=== PATIENT | male | born 2000 | race Caucasian/White ===

== ENCOUNTER 2023-01-20 03:22 | Inpatient (IN) | payer OTHER, BC, SELFPAY ==
[2023-01-20] VITALS (23 sets, daily range): BP systolic 113–127; BP diastolic 55–77; PULSE 63–140; RESP 18–20; TEMP 36.4–37.1; O2SAT 84–99; BMI 17.3
--- NOTE | 2023-01-20 03:38 | ED.GENADULT ---
HPI - General Adult General Chief complaint: Shortness of Breath/Dyspnea Stated complaint: shortness of breath Time Seen by Provider: 01/20/23 03:28 History of Present Illness HPI narrative: pt reports being short of breath. started yesterday, morning. No reported trauma . Chest pain, center of chest -5/10, worse with inhale. 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 Did measure a fever to 100.5. Does smoke. Really hurts with the deeper inhalation; he gestures to the mid low sternum. No trauma. Has been coughing but that has been since he started to have discomfort. No lower extremity symptoms. No exacerbating or relieving factors; does not change with position. Albuterol inhaler that would normally use had minimal effect. Says he has had intermittent wheeze. Mom notes history of RSV as a baby. Related Data Home Medications Medication Instructions Recorded Confirmed albuterol 90 mcg/actuation aerosol mcg inhalation 01/20/23 inhaler Allergies Allergy/AdvReac Type Severity Reaction Status Date / Time No Known Drug Allergies Allergy Verified 01/20/23 03:28 Review of Systems Status of ROS: Reports: 6 or more systems reviewed and unremarkable except as noted in History and below PFSH PFS Social History Non-prescribed substance use: denies use service: Yes (Guards) Exam Narrative: Exam Narrative: Slim. Quiet. Mildly labored in breathing. Lungs actually sound clear. Breath sounds throughout. Heart is tachycardic in a regular rhythm. Extremities are well perfused without edema. Trachea is midline. There is no supraclavicular crepitus. Abdomen is flat soft nontender. Oropharynx with trace erythema posteriorly. Neck without lymphadenopathy. Const: Vital Signs, click to edit/add: Vital Signs - 24 hr 01/20/23 03:27 01/20/23 03:27 01/20/23 03:28 Temperature 98.3 F Pulse Rate Pulse Rate [Left P ulse Oximeter] 140 H Respiratory Rate 18 20 Blood Pressure [Ri ght Upper Arm] 123/77 Pulse Oximetry 90 90 84 L Oxygen Delivery Me thod Nasal Cannula Room Air Oxygen Flow Rate 3 01/20/23 04:59 01/20/23 05:01 01/20/23 05:01 Temperature Pulse Rate Pulse Rate [Left P ulse Oximeter] 126 H Respiratory Rate 18 18 Blood Pressure [Ri ght Upper Arm] Pulse Oximetry 93 93 93 Oxygen Delivery Me thod Nasal Cannula Nasal Cannula Oxygen Flow Rate 3 01/20/23 07:34 01/20/23 07:45 01/20/23 08:01 Temperature Pulse Rate 108 H 107 H 107 H Pulse Rate [Left P ulse Oximeter] Respiratory Rate Blood Pressure [Ri ght Upper Arm] Pulse Oximetry 95 89 87 L Oxygen Delivery Me thod Room Air Room Air Room Air Oxygen Flow Rate Documenting provider has reviewed patient's vital signs: yes Course Vital Signs Vital signs: Initial Vital Signs Respiratory Rate 18 01/20/23 03:27 Pulse Oximetry 90 01/20/23 03:27 Oxygen Delivery Method Nasal Cannula 01/20/23 03:27 Oxygen Flow Rate 3 01/20/23 03:27 Vital Signs Respiratory Rate 18 01/20/23 03:27 Pulse Oximetry 90 01/20/23 03:27 Oxygen Delivery Method Nasal Cannula 01/20/23 03:27 Oxygen Flow Rate 3 01/20/23 03:27 Temperature 98.3 F 01/20/23 03:28 Pulse Rate 107 H 01/20/23 08:01 Respiratory Rate 18 01/20/23 05:01 Blood Pressure 123/77 01/20/23 03:28 Pulse Oximetry 87 L 01/20/23 08:01 Oxygen Delivery Method Room Air 01/20/23 08:01 Oxygen Flow Rate 3 01/20/23 05:01 Medications Administered Medications: Generic Name Dose Route Start Last Admin Trade Name Freq PRN Reason Stop Dose Admin Sodium Chloride 1,000 mls @ 1,000 mls/hr 01/20/23 08:40 01/20/23 09:23 0.9 % Sodium Chloride 1000 Ml IV 01/20/23 09:39 1,000 mls/hr .Q1H ONE Administration Discontinued Medications Generic Name Dose Route Start Last Admin Trade Name Freq PRN Reason Stop Dose Admin Albuterol 2.5 mg 01/20/23 07:03 01/20/23 07:05 Albuterol Sulfate 2.5 Mg/3 Ml Vial.Neb NEB 01/20/23 07:04 2.5 mg ONCE ONE Administration Albuterol/Ipratropium 1 neb 01/20/23 03:57 01/20/23 04:16 Iprat-Albut 0.5-2.5 Mg/3 Ml Neb IH 01/20/23 03:58 1 neb ONCE ONE Administration Methylprednisolone Sodium Succinate 80 mg 01/20/23 05:15 01/20/23 05:37 Methylprednisolone Sod Succ 40 Mg/Ml IVP 01/20/23 05:16 80 mg ONCE ONE Administration Medical Decision Making MDM Narrative Medical decision making narrative: Differential initially discussed includes pneumothorax/pneumomediastinum. Pneumonia. Pericarditis though positionally no change. Arrhythmia/SVT. COVID or influenza. Pulmonary embolus possible but unlikely. Will try a DuoNeb though absent wheeze. I still have concerns about pneumothorax. Oxygen saturations below 90 requiring some nasal cannula. Chest x-ray is unremarkable my read. I do not see a pneumothorax. No infiltrate. Radiology over-read without acute abnormality. Elevated white count at 12.5. COVID influenza negative. With history of asthma I have ordered Solu-Medrol. Reassessment still somewhat hypoxic to low mid 80s in sleep. Unclear etiology to that reported fever. Nonspecific viral etiology. Repeating an albuterol neb. On reassessment minimal change. Will go ahead and do IV contrasted CT scan of the chest/CT angio with PE protocol. EKG as below CT scan by my read shows mediastinal air. I do not see infiltrative process in the lungs. Final Report: INDICATION: Hypoxia; fever; low pleuritic chest pain. COMPARISON: Portable AP chest 01/20/2023 at 4:30 a.m. TECHNIQUE: CT chest with intravenous contrast; coronal and sagittal reformats. FINDINGS: No evidence of acute or chronic pulmonary thromboemboli. Extensive pneumo mediastinum. No pneumothorax or pleural effusion. No evidence of acute pulmonary infiltrates. No evidence of pleural effusion or chest wall pathology. Limited CT through the upper abdomen is unremarkable. Impression: 1. Extensive pneumomediastinum may be originating in the neck and extending down into the mediastinum; a perforation of the esophagus cannot be ruled out; suggest obtaining either a fluoroscopy with contrast or repeat CT of the neck and chest while the patient is swallowing oral contrast. 2. Findings were communicated to Dr. Bowling Recommendations are to admit for a swallow study though doubtful esophageal perforation, admitting for oxygen support/resolution. I have discussed this case with our surgeon and hospitalist and respiratory therapist. Understandable preference is to swallow study 1st to verify sanctity of the esophagus. Handing off at change of shift Lab Data Lab results reviewed: Yes I reviewed the patient's lab results Labs: Lab Results 01/20/23 01/20/23 Range/Units 03:45 04:15 WBC 12.49 H (4.50-11.00) K/uL RBC 5.22 (4.30-5.90) m/uL Hgb 16.0 (13.5-17.5) gm/dL Hct 46.0 (37.0-53.0) % MCV 88 (80-100) fL MCH 31 (26-34) pg MCHC 35 (32-36) gm/dL RDW Coeff of Alirio 13.0 (11.5-15.5) % Plt Count 364 (140-440) K/uL Neut % (Auto) 82.4 H (42.0-72.0) % Lymph % (Auto) 5.1 L (20-44) % Haakon % (Auto) 9.3 (0.0-11.0) % Eos % (Auto) 2.6 (0.0-7.0) % Baso % (Auto) 0.4 (0.0-3.0) % Neut # (Auto) 10.30 H (1.7-7.0) K/uL Lymph # (Auto) 0.60 L (0.90-2.90) K/uL [place]on # (Auto) 1.20 H (0.00-0.90) K/UL Eos # (Auto) 0.30 (0.00-0.50) K/uL Baso # (Auto) 0.00 (0.00-0.30) K/uL Abs Immat Gran (auto) 0.00 (0.00-0.30) K/uL Imm/Tot Granulo (auto) 0.2 % Sodium 141 (135-149) mmol/L Potassium 4.1 (3.6-5.1) mmol/L Chloride 103 (96-114) mmol/L Carbon Dioxide 25 (20-32) mmol/L Anion Gap 13 (7-15) mEq/L BUN 12 (5-24) mg/dL Creatinine 0.9 (0.5-1.5) mg/dL Estimated GFR 125 ml/min Glucose 118 H (60-115) mg/dL Calcium 9.4 (8.4-10.6) mg/dL SARS-CoV-2 (PCR) Negative SARS-CoV-2 (Negative) Influenza Type A (PCR) Negative PCR FLU A (Negative) Influenza Type B (PCR) Negative PCR FLU B (Negative) RSV (PCR) Negative PCR RSV (Negative) ECG Data Attestation: I personally reviewed and interpreted this ECG as follows: (Sinus tachycardia rate of 105) Discharge Plan Discharge Clinical Impression: Pneumomediastinum Prescriptions: No Action albuterol 90 mcg/actuation aerosol inhalation Follow Up/Referrals: Modesta Fragoso MD [Primary Care Provider] -
--- NOTE | 2023-01-20 03:56 | ED.NURSE ---
walking from triage to room 6, sats decreased from 85% to 83%. Pt placed on oxygen via NC, sats increased to 90%.
--- NOTE | 2023-01-20 03:57 | CRLHL7_ITS ---
For Patients: As a result of the Cures Act, medical imaging exams and procedure reports are released immediately into your electronic medical record. You may view this report before your referring provider. If you have questions, please contact your health care provider. INDICATION: Hypoxia, fever TECHNIQUE: Chest 1 views. COMPARISON: None. FINDINGS: Cardiovascular and mediastinum: Heart size and vasculature are normal in caliber and appearance. Lungs and pleural spaces: Lungs are clear. No sign of infiltrate. No sign of pleural effusion. No pneumothorax. Bones and soft tissues: No significant findings. IMPRESSION: No evidence of acute cardiopulmonary process. Dictated by Graham Landaverde MD @ 01/20/2023 5:08:40 AM (Electronically Signed)
[2023-01-20] MEDS: IPRAT-ALBUT 0.5-2.5 MG/3 ML NEB 1 NEB IH ×3 (04:16→21:25)
[2023-01-20 04:18] LABS: Basophils Percent Auto 0.4 % (0.0-3.0); Eosinophils Percent Auto 2.6 % (0.0-7.0); Immature Granulocytes Pct Auto 0.2 %; Lymphocytes Percent Auto 5.1 % (20-44); Mean Corpuscular HGB Conc 35 gm/dL (32-36); Mean Corpuscular Hemoglobin 31 pg (26-34); Mean Corpuscular Volume 88 fL (80-100); Monocytes Percent Auto 9.3 % (0.0-11.0); Neutrophils Percent Auto 82.4 % (42.0-72.0); Platelet Count* 364 K/uL (140-440); Red Blood Count 5.22 m/uL (4.30-5.90); White Blood Count* 12.49 K/uL (4.50-11.00)
[2023-01-20 04:24] LABS: Slide Review Reflex No
[2023-01-20 04:29] LABS: PCR FLU A Negative PCR FLU A (Negative); PCR FLU B Negative PCR FLU B (Negative); PCR RSV Negative PCR RSV (Negative)
[2023-01-20 04:32] LABS: Chloride* 103 mmol/L (96-114); Potassium* 4.1 mmol/L (3.6-5.1); Sodium* 141 mmol/L (135-149)
[2023-01-20 04:33] LABS: SARS PCR* Negative SARS-CoV-2 (Negative)
[2023-01-20 04:35] LABS: Anion Gap 13 mEq/L (7-15); Blood Urea Nitrogen* 12 mg/dL (5-24); Calcium* 9.4 mg/dL (8.4-10.6); Carbon Dioxide* 25 mmol/L (20-32); Creatinine* 0.9 mg/dL (0.5-1.5); Estimated Glomerular Filt Rate 125 ml/min; Glucose* 118 mg/dL (60-115)
[2023-01-20] MEDS: METHYLPREDNISOLONE SOD SUCC 40 MG/ML 80 MG IVP (05:37)
[2023-01-20] MEDS: ALBUTEROL SULFATE 2.5 MG/3 ML VIAL.NEB NEB ×2 (07:05)
--- NOTE | 2023-01-20 07:33 | CRLHL7_ITS ---
For Patients: As a result of the Century Cures Act, medical imaging exams and procedure reports are released immediately into your electronic medical record. You may view this report before your referring provider. If you have questions, please contact your health care provider. INDICATION: Hypoxia; fever; low pleuritic chest pain. COMPARISON: Portable AP chest 01/20/2023 at 4:30 a.m. TECHNIQUE: CT chest with intravenous contrast; coronal and sagittal reformats. FINDINGS: No evidence of acute or chronic pulmonary thromboemboli. Extensive pneumo mediastinum. No pneumothorax or pleural effusion. No evidence of acute pulmonary infiltrates. No evidence of pleural effusion or chest wall pathology. Limited CT through the upper abdomen is unremarkable. Impression: 1. Extensive pneumomediastinum may be originating in the neck and extending down into the mediastinum; a perforation of the esophagus cannot be ruled out; suggest obtaining either a fluoroscopy with contrast or repeat CT of the neck and chest while the patient is swallowing oral contrast. 2. Findings were communicated to Dr. Bowling Please note that all CT scans at this facility use dose modulation, iterative reconstruction, and/or weight-based dosing when appropriate to reduce radiation dose to as low as reasonably achievable. Dictated by Betty Mccarty MD @ 01/20/2023 9:04:19 AM (Electronically Signed)
--- NOTE | 2023-01-20 08:04 | ED.NURSE ---
Patient placed on Room air. Sats fluctuated from 88-94%. Upon return from from CT sats consistently 86-88% so 2L via NC was again placed on patient.
--- NOTE | 2023-01-20 09:18 | CRLHL7_ITS ---
For Patients: As a result of the Century Cures Act, medical imaging exams and procedure reports are released immediately into your electronic medical record. You may view this report before your referring provider. If you have questions, please contact your health care provider. INDICATION: Pneumomediastinum; looking for the source. Comparison: CT chest with intravenous contrast 01/20/2023; chest radiograph same date. TECHNIQUE: CT chest without intravenous contrast; administration of oral contrast. FINDINGS: Again appreciated is evidence of pneumomediastinum. Esophagus is well delineated. No evidence of extravasation of the orally administered contrast either into the mediastinum or in the neck. No pneumothorax or pleural effusion. Impression : 1. Pneumomediastinum persistent without any interval change. 2. No extravasation of orally administered contrast either into the mediastinum or into the soft tissues of the neck. Please note that all CT scans at this facility use dose modulation, iterative reconstruction, and/or weight-based dosing when appropriate to reduce radiation dose to as low as reasonably achievable. Dictated by Betty Mccarty MD @ 01/20/2023 10:05:06 AM (Electronically Signed)
[2023-01-20] MEDS: 0.9 % SODIUM CHLORIDE 1000 ml 1,000 ML IV (09:23)
--- NOTE | 2023-01-20 13:57 | PM.GSCN ---
History of Present Illness Consult details Date Seen: 01/20/23 Consult date: 01/20/23 Narrative: The patient is a 22-year-old male who was in his usual state of health until yesterday morning when, unprovoked he developed severe shortness of breath. He states that it got worse and worse and he began coughing. He thought it was his asthma but his inhaler did not seem to help. Last evening he had a fever of 100.5. He continued to cough and felt dizzy and lightheaded and had difficulty breathing. He came in to be seen. He was given a nebulizer as well as the steroid. He now feels better though he is not completely back to normal. He has never had anything like this before though he does have a history of hospitalization for RSV as a child. His mother states that he was told that he had some sort of lung damage from respiratory infections when he was younger. 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 He does vape. What is your current living situation?: I presently have a place to live Problems where you live: no known problems Problems where you live details: no known problems In the past 12 months, utilities in danger of being shut off: no In past 12 months, lack of transportation kept you from medical appts, meetings, work, or getting things needed for daily living: no In the past 12 mos, have been you worried that your food would run out before you had money to buy more?: never true In the past 12 mos, the food you bought just didn't last and you didn't have money to buy more?: never true Highest level of school completed/degree received: high school graduate Smoking Status: Current every day smoker Do you use any of these nicotine containing products: Vaping Products How often do you have a drink containing alcohol: 2-3 times a week Alcohol type: beer How many standard drinks containing alcohol do you have on a typical day: 1 or 2 How often do you have six or more drinks on one occasion: Never AUDIT-C Alcohol total score: 3 Non-prescribed substance use: denies use Caffeine: Yes How often does anyone, including family, friends and others, physically hurt you: never How often does anyone, including family, friends and others, insult or talk down to you: never How often does anyone, including family, friends and others, threaten you with harm: never How often does anyone, including family, friends and others, scream or curse at you: never service: Yes Meds Home Medications and Allergies Home Medications Medication Instructions Recorded Confirmed Type albuterol 90 mcg/actuation aerosol mcg inhalation 01/20/23 History inhaler Allergies Allergy/AdvReac Type Severity Reaction Status Date / Time No Known Drug Allergies Allergy Verified 01/20/23 09:54 Exam Narrative: Exam Narrative: General appearance: Alert, cooperative, and in no distress Eyes: PERRLA, eye lids clear, and sclera white HENT Head: Normocephalic Ears: External ears normal Pulmonary: Breathing nonlabored the patient is satting 95% on 2 L nasal cannula Cardiovascular Heart: Mildly tachycardic at 1:10 a.m.. Extremities: warm and well perfused Musculoskeletal: Extremities: Upper: Both upper extremities have normal joint range of motion and intact strength. Lower: Both lower extremities have normal joint range of motion and intact strength. Skin: Normal skin color, texture, and turgor. Neurologic: No focal deficits Psychiatric: Alert, oriented, cooperative, normal affect. Const: Vital Signs, click to edit/add: Vital Signs - 24 hr 01/20/23 03:27 01/20/23 03:27 01/20/23 03:28 Temperature 98.3 F Pulse Rate Pulse Rate [Left P ulse Oximeter] 140 H Pulse Rate [Pulse Oximeter] Respiratory Rate 18 20 Blood Pressure Blood Pressure [Le ft Arm] Blood Pressure [Ri ght Upper Arm] 123/77 Pulse Oximetry 90 90 84 L Oxygen Delivery Me thod Nasal Cannula Room Air Oxygen Flow Rate 3 01/20/23 04:59 01/20/23 05:01 01/20/23 05:01 Temperature Pulse Rate Pulse Rate [Left P ulse Oximeter] 126 H Pulse Rate [Pulse Oximeter] Respiratory Rate 18 18 Blood Pressure Blood Pressure [Le ft Arm] Blood Pressure [Ri ght Upper Arm] Pulse Oximetry 93 93 93 Oxygen Delivery Me thod Nasal Cannula Nasal Cannula Oxygen Flow Rate 3 01/20/23 07:34 01/20/23 07:45 01/20/23 08:01 Temperature Pulse Rate 108 H 107 H 107 H Pulse Rate [Left P ulse Oximeter] Pulse Rate [Pulse Oximeter] Respiratory Rate Blood Pressure Blood Pressure [Le ft Arm] Blood Pressure [Ri ght Upper Arm] Pulse Oximetry 95 89 87 L Oxygen Delivery Me thod Room Air Room Air Room Air Oxygen Flow Rate 01/20/23 08:15 01/20/23 08:30 01/20/23 08:45 Temperature Pulse Rate 93 99 98 Pulse Rate [Left P ulse Oximeter] Pulse Rate [Pulse Oximeter] Respiratory Rate Blood Pressure Blood Pressure [Le ft Arm] Blood Pressure [Ri ght Upper Arm] Pulse Oximetry 93 92 93 Oxygen Delivery Me thod Oxygen Flow Rate 01/20/23 09:00 01/20/23 09:15 01/20/23 09:30 Temperature Pulse Rate 94 93 99 Pulse Rate [Left P ulse Oximeter] Pulse Rate [Pulse Oximeter] Respiratory Rate Blood Pressure Blood Pressure [Le ft Arm] Blood Pressure [Ri ght Upper Arm] Pulse Oximetry 93 93 95 Oxygen Delivery Me thod Oxygen Flow Rate 01/20/23 09:45 01/20/23 10:00 01/20/23 10:15 Temperature Pulse Rate 96 88 85 Pulse Rate [Left P ulse Oximeter] Pulse Rate [Pulse Oximeter] Respiratory Rate Blood Pressure Blood Pressure [Le ft Arm] Blood Pressure [Ri ght Upper Arm] Pulse Oximetry 95 94 96 Oxygen Delivery Me thod Oxygen Flow Rate 01/20/23 10:22 01/20/23 10:30 01/20/23 12:24 Temperature 97.6 F Pulse Rate 91 86 Pulse Rate [Left P ulse Oximeter] Pulse Rate [Pulse Oximeter] 91 Respiratory Rate 18 Blood Pressure 113/63 Blood Pressure [Le ft Arm] 127/75 Blood Pressure [Ri ght Upper Arm] Pulse Oximetry 95 97 93 Oxygen Delivery Me thod Room Air Oxygen Flow Rate 01/20/23 12:24 Temperature Pulse Rate Pulse Rate [Left P ulse Oximeter] Pulse Rate [Pulse Oximeter] Respiratory Rate 18 Blood Pressure Blood Pressure [Le ft Arm] Blood Pressure [Ri ght Upper Arm] Pulse Oximetry 98 Oxygen Delivery Me thod Nasal Cannula Oxygen Flow Rate 2 Results Labs Labs: Abnormal lab results 01/20/23 Range/Units 04:15 WBC 12.49 H (4.50-11.00) K/uL Neut % (Auto) 82.4 H (42.0-72.0) % Lymph % (Auto) 5.1 L (20-44) % Neut # (Auto) 10.30 H (1.7-7.0) K/uL Lymph # (Auto) 0.60 L (0.90-2.90) K/uL [place] # (Auto) 1.20 H (0.00-0.90) K/UL Glucose 118 H (60-115) mg/dL Diabetes panel 01/20/23 Range/Units 04:15 Sodium 141 (135-149) mmol/L Potassium 4.1 (3.6-5.1) mmol/L Chloride 103 (96-114) mmol/L Carbon Dioxide 25 (20-32) mmol/L BUN 12 (5-24) mg/dL Creatinine 0.9 (0.5-1.5) mg/dL Glucose 118 H (60-115) mg/dL Calcium 9.4 (8.4-10.6) mg/dL Calcium panel 01/20/23 Range/Units 04:15 Calcium 9.4 (8.4-10.6) mg/dL Pituitary panel 01/20/23 Range/Units 04:15 Sodium 141 (135-149) mmol/L Potassium 4.1 (3.6-5.1) mmol/L Chloride 103 (96-114) mmol/L Carbon Dioxide 25 (20-32) mmol/L BUN 12 (5-24) mg/dL Creatinine 0.9 (0.5-1.5) mg/dL Glucose 118 H (60-115) mg/dL Calcium 9.4 (8.4-10.6) mg/dL Adrenal panel 01/20/23 Range/Units 04:15 Sodium 141 (135-149) mmol/L Potassium 4.1 (3.6-5.1) mmol/L Chloride 103 (96-114) mmol/L Carbon Dioxide 25 (20-32) mmol/L BUN 12 (5-24) mg/dL Creatinine 0.9 (0.5-1.5) mg/dL Glucose 118 H (60-115) mg/dL Calcium 9.4 (8.4-10.6) mg/dL All other labs normal. Imaging CT scan - chest: report reviewed and image reviewed Additional studies: Chest CTA 01/20/23 Impression: 1. Extensive pneumomediastinum may be originating in the neck and extending down into the mediastinum; a perforation of the esophagus cannot be ruled out; suggest obtaining either a fluoroscopy with contrast or repeat CT of the neck and chest while the patient is swallowing oral contrast. 2. Findings were communicated to Dr. Bowling 01/20/[address] with PO contrast Impression : 1. Pneumomediastinum persistent without any interval change. 2. No extravasation of orally administered contrast either into the mediastinum or into the soft tissues of the neck. Dictated by Betty Mccarty MD @ 01/20/2023 10:05:06 AM Assessment and Plan Assessment and plan (1) Asthma: Status: Acute (2) Pneumomediastinum: Status: Acute (3) Vapes nicotine containing substance: Status: Acute Plan Patient is a 22 year old male who presented to the emergency department today with dyspnea, tachycardia and CT scan showing pneumomediastinum. CT with oral contrast did not show extravasation indicating esophageal perforation. Most likely cause is airway rupture from coughing. Whether not this was provoked from an asthma attack is unclear. I advised him to quit smoking as this will certainly make his respiratory status worse. -recommend continuing supportive cares. If patient develops worsening chest pain or shortness of breath recommend repeat chest x-ray to look for pneumothorax. -revealed guidelines on spontaneous pneumomediastinum and no antibiotics are necessary at this point.
--- NOTE | 2023-01-20 14:34 | PM.IMHP1 ---
Hospitalist- H&P: HPI History of Present Illness Date Seen: 01/20/23 Chief complaint: shortness of breath, pleurisy Narrative: Willie Izquierdo is a 22 year old man was in his usual state of health until yesterday morning shortly after 6 o'clock. He was visiting his parents is parents home and was preparing to leave for his [employer] service when he noticed what seem like an asthma exacerbation. He felt the sense of dyspnea. Administered his albuterol rescue inhaler without improvement. He continued throughout the remainder of the day trying to carry out his [employer] responsibilities including fitting for a tight fitting mask that he intends on using when exposed to certain chemicals. The mask fitting effort was quite difficult. He somehow managed to get through the day but continued to have a sense of dyspnea that would not resolve with his rescue inhaler and notice that when he took a deep breath he had as sense of discomfort in the mediastinal area. No recent illness, fevers, rigors, diaphoresis, cough. Administers his rescue inhaler 3-4 times per week. Usually administers a single dose and he continues to carry on with his activities without having to think about it. 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 As far as he knows he has not been exposed to others with an acute infectious process. On the other hand he acknowledges that were in the middle of a COVID pandemic still. Has never had anything like when he is experiencing at this time. Generally quite active. Generally he is not limited in his ability to carry out various physical activities by his dyspnea, wheezing, or cough. Review of Systems Status of ROS: Reports: 10 or more systems reviewed and unremarkable except as noted in History and below Narrative: Vapes nicotine containing products daily. Does not smoke or chew tobacco. Drinks a couple of beers maybe 3 times per week. Denies binge drinking. Denies any other street or recreational drug use. Does have cats in his home. He tells me his casts are hypoallergenic based on the fact that they grew up in a farm and use to eat chicken eggs. [facility] Medical History Vapes nicotine containing substance ?Z72.0 - Tobacco use (ICD-10) Asthma ?J45.909 - Unspecified asthma, uncomplicated (ICD-10) Surgical History S/P wisdom tooth extraction ?Z98.818 - Other dental procedure status (ICD-10) Family History Mother Asthma Brother Asthma Social History Narrative: He works as a director of student services and is also in the [employer]. He does vape. What is your current living situation?: I presently have a place to live Problems where you live: no known problems Problems where you live details: no known problems In the past 12 months, utilities in danger of being shut off: no In past 12 months, lack of transportation kept you from medical appts, meetings, work, or getting things needed for daily living: no In the past 12 mos, have been you worried that your food would run out before you had money to buy more?: never true In the past 12 mos, the food you bought just didn't last and you didn't have money to buy more?: never true Highest level of school completed/degree received: high school graduate Smoking Status: Current every day smoker Do you use any of these nicotine containing products: Vaping Products How often do you have a drink containing alcohol: 2-3 times a week Alcohol type: beer How many standard drinks containing alcohol do you have on a typical day: 1 or 2 How often do you have six or more drinks on one occasion: Never AUDIT-C Alcohol total score: 3 Non-prescribed substance use: denies use Caffeine: Yes How often does anyone, including family, friends and others, physically hurt you: never How often does anyone, including family, friends and others, insult or talk down to you: never How often does anyone, including family, friends and others, threaten you with harm: never How often does anyone, including family, friends and others, scream or curse at you: never service: Yes Meds Home Medications and Allergies Home Medications Medication Instructions Recorded Confirmed Type albuterol 90 mcg/actuation aerosol mcg inhalation 01/20/23 History inhaler Home Medication Comments: Utilizes his rescue inhaler several times throughout the week. Allergies Allergy/AdvReac Type Severity Reaction Status Date / Time No Known Drug Allergies Allergy Verified 01/20/23 09:54 Exam Narrative: Exam Narrative: Examine him in his hospital room. He appears comfortable in no acute distress. Oxygen being delivered via nasal cannula at 2 liters/minute. Vision and hearing are grossly normal. Alert and oriented to self, place, time, situation. Friendly, articulate, cooperative. External auditory canals and tympanic membranes are normal. Midline nasal septum with normal nasal mucosa. Oropharynx is benign. No JVD or hepatojugular reflux. No carotid bruits. Neck is supple. Midline trachea. No head and neck lymphadenopathy. Lungs fairly clear with scattered end inspiratory wheeze otherwise no rhonchi or rales. Chest wall excursions are full. Hypertympanitic chest. I do not palpate any subcutaneous emphysema. Heart tones with regular rhythm, normal S1-S2 without murmur, gallop, or rub. PMI not laterally displaced. Abdomen with active bowel sounds, soft, nontender. No rebound or guarding. Extremities without edema. Palpable pulses upper and lower extremities. Capillary refill less than 3 seconds. Independent in transfer, station, and gait. No focal motor neurologic deficits. Const: Vital Signs, click to edit/add: Vital Signs - 24 hr 01/20/23 03:27 01/20/23 03:27 01/20/23 03:28 Temperature 98.3 F Pulse Rate Pulse Rate [Left P ulse Oximeter] 140 H Pulse Rate [Pulse Oximeter] Respiratory Rate 18 20 Blood Pressure Blood Pressure [Le ft Arm] Blood Pressure [Ri ght Upper Arm] 123/77 Pulse Oximetry 90 90 84 L Oxygen Delivery Me thod Nasal Cannula Room Air Oxygen Flow Rate 3 01/20/23 04:59 01/20/23 05:01 01/20/23 05:01 Temperature Pulse Rate Pulse Rate [Left P ulse Oximeter] 126 H Pulse Rate [Pulse Oximeter] Respiratory Rate 18 18 Blood Pressure Blood Pressure [Le ft Arm] Blood Pressure [Ri ght Upper Arm] Pulse Oximetry 93 93 93 Oxygen Delivery Me thod Nasal Cannula Nasal Cannula Oxygen Flow Rate 3 01/20/23 07:34 01/20/23 07:45 01/20/23 08:01 Temperature Pulse Rate 108 H 107 H 107 H Pulse Rate [Left P ulse Oximeter] Pulse Rate [Pulse Oximeter] Respiratory Rate Blood Pressure Blood Pressure [Le ft Arm] Blood Pressure [Ri ght Upper Arm] Pulse Oximetry 95 89 87 L Oxygen Delivery Me thod Room Air Room Air Room Air Oxygen Flow Rate 01/20/23 08:15 01/20/23 08:30 01/20/23 08:45 Temperature Pulse Rate 93 99 98 Pulse Rate [Left P ulse Oximeter] Pulse Rate [Pulse Oximeter] Respiratory Rate Blood Pressure Blood Pressure [Le ft Arm] Blood Pressure [Ri ght Upper Arm] Pulse Oximetry 93 92 93 Oxygen Delivery Me thod Oxygen Flow Rate 01/20/23 09:00 01/20/23 09:15 01/20/23 09:30 Temperature Pulse Rate 94 93 99 Pulse Rate [Left P ulse Oximeter] Pulse Rate [Pulse Oximeter] Respiratory Rate Blood Pressure Blood Pressure [Le ft Arm] Blood Pressure [Ri ght Upper Arm] Pulse Oximetry 93 93 95 Oxygen Delivery Me thod Oxygen Flow Rate 01/20/23 09:45 01/20/23 10:00 01/20/23 10:15 Temperature Pulse Rate 96 88 85 Pulse Rate [Left P ulse Oximeter] Pulse Rate [Pulse Oximeter] Respiratory Rate Blood Pressure Blood Pressure [Le ft Arm] Blood Pressure [Ri ght Upper Arm] Pulse Oximetry 95 94 96 Oxygen Delivery Me thod Oxygen Flow Rate 01/20/23 10:22 01/20/23 10:30 01/20/23 12:24 Temperature 97.6 F Pulse Rate 91 86 Pulse Rate [Left P ulse Oximeter] Pulse Rate [Pulse Oximeter] 91 Respiratory Rate 18 Blood Pressure 113/63 Blood Pressure [Le ft Arm] 127/75 Blood Pressure [Ri ght Upper Arm] Pulse Oximetry 95 97 93 Oxygen Delivery Me thod Room Air Oxygen Flow Rate 01/20/23 12:24 Temperature Pulse Rate Pulse Rate [Left P ulse Oximeter] Pulse Rate [Pulse Oximeter] Respiratory Rate 18 Blood Pressure Blood Pressure [Le ft Arm] Blood Pressure [Ri ght Upper Arm] Pulse Oximetry 98 Oxygen Delivery Me thod Nasal Cannula Oxygen Flow Rate 2 Documenting provider has reviewed patient's vital signs: yes Hospitalist - H&P: Result Labs Labs: Short CBC 01/20/23 Range/Units 04:15 WBC 12.49 H (4.50-11.00) K/uL Hgb 16.0 (13.5-17.5) gm/dL Hct 46.0 (37.0-53.0) % Plt Count 364 (140-440) K/uL [facility] 01/20/23 04:15 Sodium 141 Potassium 4.1 Chloride 103 Carbon Dioxide 25 BUN 12 Creatinine 0.9 Glucose 118 H Calcium 9.4 ECG Attestation: I personally reviewed and interpreted this ECG as follows: ECG interpretation date: 01/20/23 Prior ECG tracings: not available for review Interpretation: Sinus tachycardia without ischemic changes. Imaging CT scan - chest: Attestation: I have reviewed the pertinent imaging results. Radiologist's impression: CT chest using PE protocol:: 1. Extensive pneumomediastinum may be originating in the neck and extending down into the mediastinum; a perforation of the esophagus cannot be ruled out; suggest obtaining either a fluoroscopy with contrast or repeat CT of the neck and chest while the patient is swallowing oral contrast. 2. No pulmonary embolism. CT chest with swallowing assessment: 1. Pneumomediastinum persistent without any interval change. 2. No extravasation of orally administered contrast either into the mediastinum or into the soft tissues of the neck. Assessment and Plan Assessment and plan (1) Pneumomediastinum: Problem comment: - spontaneous 01/19/2023 Status: Acute (2) Asthma: Problem comment: - Diagnosed at 1.5 years of age Status: Acute (3) Vapes nicotine containing substance: Status: Acute (4) Acute hypoxemic respiratory failure: Problem comment: In great measure related to acute mediastinum, may have element of his asthma contributing albeit minimal. Status: Acute Plan 1. Reviewed impression with patient, his father, his mother. Answered their questions. 2. Admit to the hospital, stabilize oxygenation, stabilize reactive airways, monitor oxygen needs and symptoms, continue with education efforts. 3. Will recheck chest x-ray tomorrow morning and consider repeating CT scan of chest. 4. Patient and family are agreeable with above stated plans and recommendations. 5. Our general surgeon is also consulted.
--- NOTE | 2023-01-20 19:35 | PC.NURSE ---
Patient up to floor accompanied by both parents at 1115. Patient is alert and oriented x4. Pleasant and cooperative. VSS. denies pain, N/V/. IV saline locked. Tolerating a reg. diet. Independent in room to chair and bathroom. 2 L NC, sating at 98%.
[2023-01-20] MEDS: SODIUM CHLORIDE 0.9 % (FLUSH) 10 ML SYRINGE 5 ML IVF (21:28)
[2023-01-20] MEDS: MELATONIN 3 MG TABLET PO (21:47)
--- NOTE | 2023-01-20 23:14 | PC.NURSE ---
End of shift note, [id number]: Pt alert and oriented, pleasant and compliant. Denies pain. States overall improvement in respiratory symptoms, weaned to 1L via NC, sating 93%. Scheduled neb admin. IV to L AV flushed, patent and saline locked. PRN Melatonin admin at HS. Vitals stable. Ind in room, uses call light appropriately, has within reach.
[2023-01-21] VITALS (8 sets, daily range): BP systolic 100–121; BP diastolic 56–72; PULSE 88–119; RESP 18; TEMP 36.2–37.3; O2SAT 94–98
[2023-01-21 06:17] LABS: Hematocrit 40.9 % (37.0-53.0); Hemoglobin* 13.9 gm/dL (13.5-17.5); Mean Corpuscular HGB Conc 34 gm/dL (32-36); Mean Corpuscular Hemoglobin 30 pg (26-34); Mean Corpuscular Volume 89 fL (80-100); Platelet Count* 306 K/uL (140-440); Red Blood Count 4.59 m/uL (4.30-5.90); White Blood Count* 12.89 K/uL (4.50-11.00)
[2023-01-21 06:19] LABS: HCO3 VBG 27 mmol/L (21-28); PCO2 VBG 46 mmHG (40-50); PO2 VBG 69.8 mmHG (25-47); pH VBG 7.377 (7.32-7.43)
[2023-01-21 06:27] LABS: Slide Review Reflex No
--- NOTE | 2023-01-21 06:34 | PC.NURSE ---
Shift note: no c/o chest pain throughout the night, no cough, no c/o SOB. O2 sats 96-98% on 1L NC,, lung sounds diminished
[2023-01-21 06:45] LABS: Chloride* 104 mmol/L (96-114); Potassium* 4.4 mmol/L (3.6-5.1); Sodium* 140 mmol/L (135-149)
[2023-01-21 06:48] LABS: Anion Gap 10 mEq/L (7-15); Blood Urea Nitrogen* 20 mg/dL (5-24); Calcium* 9.1 mg/dL (8.4-10.6); Carbon Dioxide* 26 mmol/L (20-32); Creatinine* 0.8 mg/dL (0.5-1.5); Est. Creatinine Clearance* 116.67; Estimated Glomerular Filt Rate 130 ml/min; Glucose* 121 mg/dL (60-115)
--- NOTE | 2023-01-21 07:14 | CRLHL7_ITS ---
For Patients: As a result of the Century Cures Act, medical imaging exams and procedure reports are released immediately into your electronic medical record. You may view this report before your referring provider. If you have questions, please contact your health care provider. INDICATION: Pneumomediastinum, asthma, hypoxia TECHNIQUE: Chest radiograph 3 views COMPARISON: 01/20/2023 FINDINGS: Mediastinum: No definite pneumomediastinum is seen by radiography. The heart silhouette is normal in size and morphology. Lung: Both lungs are unremarkable in appearance. No sign of pleural effusion seen. No pneumothorax is identified. Bone and Soft tissue: Unremarkable for age. IMPRESSION: 1. No definite pneumomediastinum is seen by radiography. If there is a high clinical index of suspicion, assessment with CT may be more helpful given its higher sensitivity. Dictated by Jorge Vazquez MD @ 01/21/2023 4:22:35 PM Dictated by: Jorge Vazquez MD @ 01/21/2023 16:22:38 (Electronically Signed)
[2023-01-21] MEDS: SODIUM CHLORIDE 0.9 % (FLUSH) 10 ML SYRINGE 5 ML IVF ×2 (08:51→20:12)
[2023-01-21] MEDS: IPRAT-ALBUT 0.5-2.5 MG/3 ML NEB 1 NEB IH ×4 (08:51→20:12)
[2023-01-21] MEDS: predniSONE 20 MG TABLET 40 MG PO (08:51)
--- NOTE | 2023-01-21 10:18 | PM.IMPN1 ---
Progress Note: A&P Assessment and plan (1) Acute hypoxemic respiratory failure: Problem details: - primarily secondary to acute pneumomediastinum, in addition to asthma exacerbation - supplemental oxygen discontinued 01/21/23 Status: Acute (2) Asthma: Problem details: - with acute exacerbation - RT following; continue nebs, steroids - will need close outpatient follow-up with PCP + pulmonology referral Status: Acute (3) Pneumomediastinum: Problem details: - spontaneous 01/19/2023 - stable on imaging - stressed importance of vaping cessation Status: Acute Plan - continue treatments per above - given persistent symptoms and very recent discontinuation of supplemental oxygen, needs to remain in patient 1 more day to ensure stability on room air - reviewed plan of care with RT, who agrees - mother updated by phone, questions answered Subjective Date Seen: 01/21/23 Interval history: Willie is feeling better today, still dyspneic with activity. Eating well. Supplemental oxygen was discontinued this morning, he remains stable on RA. No acute changes on repeat CXR this morning. RT following. Exam Narrative: Exam Narrative: GEN: Alert and nontoxic, answering questions appropriately, no tachypnea at rest while seated in bed HEENT: EOMIs bilaterally, no scleral icterus, full range of motion of neck, no crepitus on palpation of neck CV: RRR, No concerning murmurs R: Decreased air movement bilateral bases, expiratory wheezing bilateral apices Ext: wwp, no concerning edema Skin: No concerning skin lesions or rashes on exposed skin Neuro: Nonfocal Psych: Appropriate Const: Vital Signs, click to edit/add: Vital Signs - 24 hr 01/20/23 10:22 01/20/23 10:30 01/20/23 12:24 Temperature 97.6 F Pulse Rate 91 86 Pulse Rate [Pulse Oximeter] 91 Respiratory Rate 18 Blood Pressure 113/63 Blood Pressure [Le ft Arm] 127/75 Pulse Oximetry 95 97 93 Oxygen Delivery Me thod Room Air Oxygen Flow Rate 01/20/23 12:24 01/20/23 15:00 01/20/23 15:00 Temperature Pulse Rate Pulse Rate [Pulse Oximeter] 94 Respiratory Rate 18 18 18 Blood Pressure Blood Pressure [Le ft Arm] Pulse Oximetry 98 95 Oxygen Delivery Me thod Nasal Cannula Nasal Cannula Oxygen Flow Rate 2 2 01/20/23 15:00 01/20/23 19:45 01/20/23 21:30 Temperature 97.8 F 98.7 F Pulse Rate Pulse Rate [Pulse Oximeter] 94 98 Respiratory Rate 18 18 18 Blood Pressure Blood Pressure [Le ft Arm] 114/71 117/74 Pulse Oximetry 95 99 93 Oxygen Delivery Me thod Nasal Cannula Nasal Cannula Nasal Cannula Oxygen Flow Rate 2 2 1 01/20/23 23:00 01/20/23 23:00 01/20/23 23:00 Temperature 97.8 F Pulse Rate Pulse Rate [Pulse Oximeter] 63 63 Respiratory Rate 18 18 18 Blood Pressure Blood Pressure [Le ft Arm] 118/55 L Pulse Oximetry 97 97 Oxygen Delivery Me thod Nasal Cannula Nasal Cannula Oxygen Flow Rate 1 1 01/21/23 04:00 01/21/23 06:30 01/21/23 06:30 Temperature 98 F 98.2 F Pulse Rate Pulse Rate [Pulse Oximeter] 89 88 Respiratory Rate 18 18 18 Blood Pressure Blood Pressure [Le ft Arm] 117/57 L 120/72 Pulse Oximetry 98 97 97 Oxygen Delivery Me thod Nasal Cannula Room Air Nasal Cannula Oxygen Flow Rate 1 0 1 01/21/23 07:30 01/21/23 07:30 01/21/23 07:30 Temperature 98.2 F Pulse Rate Pulse Rate [Pulse Oximeter] 88 88 Respiratory Rate 18 18 18 Blood Pressure Blood Pressure [Le ft Arm] 120/72 Pulse Oximetry 97 97 Oxygen Delivery Me thod Nasal Cannula Nasal Cannula Oxygen Flow Rate 1 1 Labs Labs: Laboratory Results - last 24 hr 01/21/23 06:00 WBC 12.89 H RBC 4.59 Hgb 13.9 Hct 40.9 MCV 89 MCH 30 MCHC 34 Plt Count 306 VBG pH 7.377 VBG pCO2 46 VBG pO2 69.8 H VBG HCO3 27 Sodium 140 Potassium 4.4 Chloride 104 Carbon Dioxide 26 Anion Gap 10 BUN 20 Creatinine 0.8 Estimated Creat Clear 116.67 Estimated GFR 130 Glucose 121 H Calcium 9.1
[2023-01-21] MEDS: ALBUTEROL SULFATE 2.5 MG/3 ML VIAL.NEB NEB ×2 (10:58→15:16)
--- NOTE | 2023-01-21 15:38 | RESP.RT ---
Pt seen this AM at 0930 Talked about Asthma diagnosis and treatments Vaping/Smoking. I'm not convinced he is ready to quit vaping. Reinforced critical need to stop. Recently had his oxygen DCd and is tolerating well. SPO2 on RA 98% BBS very tight, minimal air movement. Suggested to Provider to increase frequency of nebs Will need a pulmonary consult wit pulmonary function testing Needs to be on a maintenance inhaler. Reports only using rescue inhaler, during out conversation it sounds like he frequently uses it. PFT testing will assist with medication prescription. Pt should be up walking in hallways, eating in chair. May need another night stay.
--- NOTE | 2023-01-21 19:22 | PC.NURSE ---
End of Shift note, pt has been very pleasant. LS are tight and very diminished and some wheezes. nebs q 2 hours. RT was in to see. pt said that nebs do help. he was put on RA this am. he is up ab frances. Sao2 on RA 93-97% he is eating, drinking and voiding.
[2023-01-22 03:00] VITALS: BP 116/61; PULSE 113; RESP 18; TEMP 37; O2SAT 97
--- NOTE | 2023-01-22 05:00 | PC.NURSE ---
Shift note: Pt is conscious, alert and oriented. Independent in room. No SOB and O2>90 in room air. Denied any chest pain at this time. Pt has been in high fowlers to semi-fowlers position for the shift. Mild inspiratory wheezing noted in both lungs. Vitally stable.
--- NOTE | 2023-01-22 07:00 | CRLHL7_ITS ---
For Patients: As a result of the Century Cures Act, medical imaging exams and procedure reports are released immediately into your electronic medical record. You may view this report before your referring provider. If you have questions, please contact your health care provider. Indication: Follow-up Technique: Chest 1 view Comparison: Chest x-ray 01/21/2023 Findings/Impression: Cardiovascular and mediastinum: Normal heart size. No definite pneumomediastinum seen by plain film. Lungs and pleural space: Lungs are clear. No sign of infiltrate or mass. No sign of pleural effusion. No pneumothorax. Bones and soft tissues: No acute findings. Dictated by Brock Becerra MD @ 01/22/2023 7:19:05 AM (Electronically Signed)
[2023-01-22] MEDS: SODIUM CHLORIDE 0.9 % (FLUSH) 10 ML SYRINGE 5 ML IVF (08:27)
[2023-01-22] MEDS: IPRAT-ALBUT 0.5-2.5 MG/3 ML NEB 1 NEB IH (08:28)
[2023-01-22] MEDS: predniSONE 20 MG TABLET 40 MG PO (08:28)
[2023-01-22 08:30] VITALS: BP 123/75; PULSE 82; RESP 18; TEMP 36.9; O2SAT 94
--- NOTE | 2023-01-22 09:36 | PM.DS1 ---
DS: Providers Provider Date Seen: 01/22/23 Date of admission: 01/20/23 14:23 Primary care physician: Modesta Fragoso MD Admitting Clinician: Jake Monroy MD Consults: Respiratory Therapy Attending Physician on discharge: Melany Selby MD Date of Discharge: 01/22/23 DS: Diagnosis Discharge Diagnosis (1) Acute hypoxemic respiratory failure: Status: Acute Problem details: - primarily secondary to acute pneumomediastinum, in addition to asthma exacerbation - supplemental oxygen discontinued 01/21/23 and patient remained stable with no concerning findings on repeat CXR (2) Asthma: Status: Acute Problem details: - with acute exacerbation - RT followed during stay - treated with nebs and steroids - understands need for close outpatient follow-up with PCP + pulmonology referral (3) Pneumomediastinum: Status: Acute Problem details: - spontaneous, 01/19/2023 - stable on imaging - stressed importance of vaping cessation DS: Summary Hospital Course Hospital Course: Patient is a 22-year-old male who presented to the hospital for dyspnea and chest discomfort, found to have a spontaneous pneumomediastinum on imaging. Also noted to have an acute asthma exacerbation during stay. Details above. Patient tolerated treatment with nebulizer, supplemental oxygen (weaned down to room air on hospital day 2), and steroids. RT followed during stay and importance of cessation of vaping was stressed with patient. Willie was medically appropriate for discharge on 01/22 with close PCP follow-up. Time spent discussing smoking cessation with patient: 3 to 10 minutes Status at Discharge Functional status at discharge: independent ambulation Overall status at discharge: patient is progressing back to baseline Time Spent with Patient Time attestation: Total time spent providing and/or coordinating discharge services: Time spent: Greater than 30 minutes Specific discharge activities: Patient Education, work forms regarding activity restriction, medication reconciliation Exam Narrative: Exam Narrative: GEN: Alert and oriented, in no tachypnea at rest. Speaking in full sentences HEENT: Normal external ears, EOMIs bilaterally, no scleral icterus CV: RRR, No concerning murmurs R: Expiratory wheezing noted bilateral apices Ext: wwp, no concerning edema Skin: No concerning skin lesions or rashes on exposed skin Neuro: Nonfocal Psych: Appropriate Const: Vital Signs, click to edit/add: Vital Signs - 24 hr 01/21/23 11:00 01/21/23 15:10 01/21/23 15:10 Temperature 97.9 F 97.2 F L Pulse Rate [Pulse Oximeter] 103 H 97 Respiratory Rate 18 18 18 Blood Pressure [Le ft Arm] 105/56 L 100/57 L Pulse Oximetry 94 94 94 Oxygen Delivery Me thod Room Air Room Air Room Air Oxygen Flow Rate 1 01/21/23 15:15 01/21/23 20:00 01/21/23 23:00 Temperature 99.1 F Pulse Rate [Pulse Oximeter] 97 119 H 113 H Respiratory Rate 18 18 18 Blood Pressure [Le ft Arm] 116/62 Pulse Oximetry 96 Oxygen Delivery Me thod Room Air Oxygen Flow Rate 01/21/23 23:00 01/21/23 23:00 01/22/23 03:00 Temperature 98.3 F 98.6 F Pulse Rate [Pulse Oximeter] 113 H 113 H Respiratory Rate 18 18 18 Blood Pressure [Le ft Arm] 121/67 116/61 Pulse Oximetry 95 95 97 Oxygen Delivery Me thod Room Air Room Air Room Air Oxygen Flow Rate 1 Discharge Plan Discharge Disposition: Home, Self-Care Date of Admission: 01/20/23 14:23 Attending Provider on Discharge: Melany Selby Primary Care Provider: Modesta Fragoso Condition: Improved Anticipated Discharge Date/Time: 01/22/23 12:00 Discharge Medications: New ipratropium-albuterol 0.5 mg-3 mg(2.5 mg base)/3 mL Solution For Nebulization 3 ml inhalation QID Qty: 90 0RF Rx Instructions: schedule QID x7d, then as needed for asthma exacerbations albuterol sulfate 2.5 mg /3 mL (0.083 %) Solution For Nebulization 2.5 mg NEB Q2H PRNQty: 90 0RF prednisone 10 mg tablet 10 mg PO DAILY Qty: 25 0RF Rx Instructions: 4 tabs po Qdx2d, then 2 tabs po Qd x5d, then 1 tab po Qd x7d Continued albuterol sulfate [Ventolin HFA] 90 mcg/actuation HFA aerosol inhaler 2 inh inhalation Q4H PRN Discharge Orders: Discharge Order (Routine); Ordered 01/22/23 Ordered By: Melany Selby Patient Education: Albuterol (By breathing), Prednisone (By mouth), Ipratropium/Albuterol (By breathing), Dyspnea (DC), Hypoxia (GEN) Additional Instructions: Medications sent to [facility]: 1. Albuterol nebs (to use every 2-4 hours as needed for wheezing) 2. Duonebs (scheduled 4 times/day for the next week, then as needed) 3. Prednisone (steroid tab, take as directed with food for the next 2 weeks) [address] Fragoso as scheduled to discuss your hospital stay and referral to a lung specialist. NO VAPING until you see the Lung Specialist to talk about how to optimize lung health for the [employer]. You need to come back to the hospital/ER for any severe shortness of breath or chest pain. Activity Level: Activity as Tolerated Discharge Diet: Regular Follow Up Appointments: Modesta Fragoso MD [Primary Care Provider] - 01/31/23 9:05 am ( [facility] for hospital follow up and discussion Pulmonology referral.) Forms: Work/School Release, [facility] Info Instructions
--- NOTE | 2023-01-22 12:00 | PC.NURSE ---
Patient VSS and A&O throughout this shift. Patient has maintained O2 > 90% on RA at rest and with activity. Afebrile. Independent in his room. Adequate intake and voiding independently. Reports having a bowel movement this morning. Discharging home this afternoon. IV removed from left AC catheter intact. Discharge education (activity restrictions, prescriptions, follow up appointments and pulm referral) reviewed with patient who verbalized understanding.
--- NOTE | 2023-01-22 13:56 | PC.NURSE ---
Patient currently still in hospital room waiting for transportation home. Discharge education already reviewed with patient and paperwork had been signed. IV in left AC discontinued catheter intact. Patient denies any pain, N/V or SOB. Independent in room.
--- NOTE | 2023-01-22 14:53 | PC.NURSE ---
Patient discharged from [facility] at 1453 via ambulatory escorted by JUANY Sevilla.
== END 2023-01-22 14:53 | disposition home or self-care (01) | DRG 133 ==
LOC: ED 07:07 → MEDSURG 11:10
PROVIDERS: Admitting Provider Internal Medicine; Emergency Provider Family Medicine; PCP Family Medicine; Visit Provider Internal Medicine
DX: J96.01 Acute respiratory failure with hypoxia (principal); J98.2 Interstitial emphysema; J45.901 Unspecified asthma with (acute) exacerbation; R00.0 Tachycardia, unspecified; F17.290 Nicotine dependence, other tobacco product, uncomplicated
CPT/HCPCS: 36415; 71045; 71046; 71250; 71275; 80048; 82803; 85025; 85027; 87631; 94640; 94761; 99284; 99285; A9270; J2920; J7030; J7512; Q9965; Q9967